=== PATIENT | male | born 1995 | race Hispanic/Latino ===

== ENCOUNTER 2018-10-08 22:36 | Emergency (ER) | payer SELFPAY ==
[2018-10-08] MEDS ORDERED: IBUPROFEN 400 MG TABLET ONE (23:14)
== END 2018-10-08 23:49 | disposition home or self-care (01) ==
LOC: EDH 22:36
DX: S60.221A Contusion of right hand, initial encounter (principal); W22.8XXA Striking against or struck by other objects, initial encounter; Y93.89 Activity, other specified; Y92.89 Other specified places as the place of occurrence of the external cause; Y99.8 Other external cause status
CPT/HCPCS: 73130

== ENCOUNTER 2018-10-28 14:54 | Emergency (ER) | payer SELFPAY | END 2018-10-28 15:16 | disposition left against medical advice (07) | LOC: EDH 14:54 | DX: R10.9 Unspecified abdominal pain (principal); Z53.21 Procedure and treatment not carried out due to patient leaving prior to being seen by health care provider ==

== ENCOUNTER 2019-04-12 00:36 | Emergency (ER) | payer OTHER ==
[2019-04-12] MEDS ORDERED: IBUPROFEN 600 MG TABLET ONE (01:07)
== END 2019-04-12 01:36 | disposition home or self-care (01) ==
LOC: EDH 00:36
DX: S39.012A Strain of muscle, fascia and tendon of lower back, initial encounter (principal); V49.49XA Driver injured in collision with other motor vehicles in traffic accident, initial encounter; Y93.89 Activity, other specified; Y92.89 Other specified places as the place of occurrence of the external cause; Y99.8 Other external cause status
CPT/HCPCS: 99282

== ENCOUNTER 2019-04-23 13:53 | Emergency (ER) | payer OTHER | END 2019-04-23 16:18 | disposition home or self-care (01) | LOC: EDH 13:53 | DX: S90.32XA Contusion of left foot, initial encounter (principal); L03.116 Cellulitis of left lower limb; Z87.891 Personal history of nicotine dependence; W20.8XXA Other cause of strike by thrown, projected or falling object, initial encounter; Y93.89 Activity, other specified; Y92.098 Other place in other non-institutional residence as the place of occurrence of the external cause; Y99.8 Other external cause status | CPT/HCPCS: 73630 ==

== ENCOUNTER 2019-12-04 01:16 | Emergency (ER) | payer OTHER ==
[2019-12-04] MEDS ORDERED: KETOROLAC TROMETHAMINE 60 MG/2 ML VIAL ONE (01:29)
[2019-12-04] MEDS ORDERED: CYCLOBENZAPRINE HCL 10 MG TABLET ONE (01:30)
== END 2019-12-04 02:31 | disposition home or self-care (01) ==
LOC: EDH 01:16
DX: M94.0 Chondrocostal junction syndrome [Tietze] (principal); R20.2 Paresthesia of skin
CPT/HCPCS: 71046; 93005; 96372; 99283; J1885

== ENCOUNTER 2021-02-04 15:12 | Emergency (ER) | payer OTHER ==
[~2021-02-04] VITALS: Ht 172.7 cm; Wt 65.8 kg
[2021-02-04 15:15] VITALS: BP 111/63
[2021-02-04] MEDS ORDERED: KETOROLAC 15MG/ML VIAL (15MG/ML) IM ONE (16:30)
[2021-02-04] MEDS ORDERED: ORPHENADRINE CITRATE 30 MG/ML ML IM ONE (17:00)
[2021-02-04] MEDS ORDERED: LIDOCAINE 5% TOPICAL PATCH TP ONE (17:00)
[2021-02-04] MEDS ORDERED: IBUP-2070 PO (17:54)
[2021-02-04] MEDS ORDERED: CYCL5TAB PO (17:54)
[2021-02-04 18:10] VITALS: BP 101/66
== END 2021-02-04 18:22 | disposition home or self-care (01) ==
LOC: EDH 15:12
DX: S20.229A Contusion of unspecified back wall of thorax, initial encounter (principal); M62.838 Other muscle spasm; Z79.899 Other long term (current) drug therapy; W18.39XA Other fall on same level, initial encounter; Y93.89 Activity, other specified; Y92.89 Other specified places as the place of occurrence of the external cause; Y99.8 Other external cause status
CPT/HCPCS: 72072; 96372 ×2; 99284; J1885; J2360

== ENCOUNTER 2022-07-21 18:39 | Emergency (ER) | payer OTHER ==
[~2022-07-21] VITALS: Ht 172.7 cm; Wt 59.9 kg
[~2022-07-21 18:39] MED LIST: CYCL5TAB PO; IBUP-2070 PO
[2022-07-21 21:30] VITALS: BP 110/65
== END 2022-07-21 21:47 | disposition home or self-care (01) ==
LOC: EDH 18:39
DX: S01.511A Laceration without foreign body of lip, initial encounter (principal); S40.011A Contusion of right shoulder, initial encounter; Y04.0XXA Assault by unarmed brawl or fight, initial encounter; Y93.89 Activity, other specified; Y92.89 Other specified places as the place of occurrence of the external cause; Y99.8 Other external cause status
CPT/HCPCS: 70450; 72125; 73030